=== PATIENT | female | born 1955 | race Caucasian/White ===

== ENCOUNTER → 2017-10-24 | Outpatient (CLI) | payer OTHER ==
--- NOTE | 2017-10-24 11:03 | RADRPT ---
EXAM DATE/TIME: 10/24/2017 09:52 [place] COMPARISON: No previous studies available for comparison. INDICATIONS : Evaluate for pneumonia, pneumothorax, or communicable disease. Pre op for thyroidectomy. MEDICAL HISTORY : Goiter. SURGICAL HISTORY : Fusion, cervical. ENCOUNTER: Initial ACUITY: 1 day PAIN SCORE: 0/10 LOCATION: chest FINDINGS: PA and lateral views of the chest demonstrate the lungs to be symmetrically aerated without evidence of mass, infiltrate or effusion. The cardiomediastinal contours are unremarkable. Osseous structure s are intact. CONCLUSION: No acute disease. Diogenes Esparza MD FACR on October 24, 2017 at 11:01 Board Certified Radiologist. This report was verified electronically.
--- NOTE | 2017-10-24 20:07 | EKG ---
Date Performed: 10/24/2017 Time Performed: 09:25:42 PTAGE: 62 years EKG: Sinus rhythm . Left anterior fascicular block Borderline ECG NO PREVIOUS TRACING DOCTOR: Alex Horn Interpretating Date/Time 10/24/2017 20:05:36
== END ==
LOC: HCAV 09:15
DX: Z01.818 Encounter for other preprocedural examination (principal); Z01.810 Encounter for preprocedural cardiovascular examination; E04.2 Nontoxic multinodular goiter; R05 Cough; I51.7 Cardiomegaly
CPT/HCPCS: 71046; 93005

== ENCOUNTER → 2018-01-30 | Outpatient (CLI) | payer OTHER | LOC: HRSP 10:21 | DX: J44.9 Chronic obstructive pulmonary disease, unspecified (principal) | CPT/HCPCS: 94060 ==